=== PATIENT | male | born 2000 | race Caucasian/White ===

== ENCOUNTER 2020-05-07 12:23 | Emergency (ER) | payer OTHER ==
[~2020-05-07] VITALS: Ht 175.3 cm; Wt 65.9 kg
[~2020-05-07 12:23] MED LIST: NO HOME MEDICATIONS
[2020-05-07 12:31] VITALS: BP 102/69; TEMP 97.8
[2020-05-07 14:15] VITALS: PULSE 80
== END 2020-05-07 14:15 | disposition home or self-care (01) ==
LOC: COL.ER 12:23
DX: S71.111A Laceration without foreign body, right thigh, initial encounter (principal); S49.92XA Unspecified injury of left shoulder and upper arm, initial encounter; V19.9XXA Pedal cyclist (driver) (passenger) injured in unspecified traffic accident, initial encounter; Y92.830 Public park as the place of occurrence of the external cause

== ENCOUNTER 2024-06-02 07:43 | Emergency (ER) | payer SELFPAY ==
[~2024-06-02] VITALS: Ht 175.3 cm; Wt 65.0 kg
[2024-06-02 07:50] VITALS: TEMP 98
[2024-06-02 08:54] VITALS: BP 118/75; PULSE 79
== END 2024-06-02 08:54 | disposition home or self-care (01) ==
LOC: COL.ER 07:43
DX: S38.01XA Crushing injury of penis, initial encounter (principal); N48.30 Priapism, unspecified; V28.49XA Other motorcycle driver injured in noncollision transport accident in traffic accident, initial encounter; Y93.55 Activity, bike riding; Y92.410 Unspecified street and highway as the place of occurrence of the external cause